=== PATIENT | male | born 1935 | race Caucasian/White ===

== ENCOUNTER 2017-09-02 15:05 | Inpatient (IN) | payer OTHER, BC ==
[~2017-09-02] VITALS: Ht 170.2 cm; Wt 91.9 kg
[2017-09-02] MEDS ORDERED: SODIUM CHLORIDE 0.9% 1000ML 1,000 ML IV STA (15:58)
--- NOTE | 2017-09-02 16:03 | EMERGENCY ROOM VISIT NOTE ---
History Report prepared by Violet: Luda Drake Under the Supervision of: Dr. Rebecca Diaz D.O. First contact with patient: 15:29 Chief Complaint: TESTICULAR PAIN Stated Complaint: ENLARGED TESTICLE History of Present Illness The patient is a 82 year old male who presents to the Emergency Room with complaints of worsening left testicle swelling beginning two days ago. The patient has a cystoscopy done on Saturday, three days ago. He reports he was not started on antibiotics after the procedure. The patient states he has a history of a spot of carcinoma in his bladder which was removed. Since it was removed, he has regular cystoscopies to check that the carcinoma does not return. The patient has a history of a partial prostatectomy. The patient notes that he started to have chills, aches, and fatigue beginning two days ago. He reports his testicle started to become tender, firm and swollen two days ago. The patient states his urine has been slightly darker in color. He had his urine checked and ultrasound done at his PCP's office today. Source of History: patient Onset: two days ago Position: other (left testicle) Quality: other (swelling) Timing: worsening Associated Symptoms: + chills, + urinary symptoms, No fevers, No headache, No chest pain, No SOB, No nausea, No vomiting, No diarrhea Review of Systems See HPI for pertinent positives & negatives. A total of 10 systems reviewed and were otherwise negative. Past Medical & Surgical Medical Problems: (1) Bifascicular block (2) Bladder cancer (3) BPH (benign prostatic hyperplasia) (4) Dyslipidemia (5) HTN (hypertension) (6) OSCAR (obstructive sleep apnea) (7) Thoracic ascending aortic aneurysm (8) Thrombocytopenia Surgical Problems: (1) H/O prostatectomy (2) H/O umbilical hernia repair (3) History of appendectomy (4) History of prostatectomy Family History Patient reports no known family medical history. Social History Smoking Status: Never Smoker Marital Status: Housing Status: lives with significant other Occupation Status: retired Current/Historical Medications Scheduled Aspirin (Aspirin Ec), 81 MG PO QAM Hydrochlorothiazide (Hydrochlorothiazide), 25 MG PO QAM Lisinopril (Zestril), 40 MG PO QAM Magnesium Oxide (Mag-Ox), 400 MG PO QAM Metoprolol Succ (Toprol Xl) (Toprol-Xl), 50 MG PO QAM Ocuvite Preservision (Ocuvite Preservision), 1 TAB PO BID Rosuvastatin Calcium (Crestor), 40 MG PO QAM Allergies Coded Allergies: No Known Allergies (Unverified , 09/02/17) Physical Exam Vital Signs Date Time Temp Pulse Resp B/P (MAP) Pulse Ox O2 Delivery O2 Flow Rate FiO2 09/02/17 18:33 86 20 119/66 94 Room Air 09/02/17 16:46 82 20 129/84 97 Room Air 09/02/17 15:09 36.4 100 20 113/72 98 Room Air Physical Exam GENERAL: alert, well appearing, well nourished, no distress, non-toxic EYE EXAM: normal conjunctiva, PERRL and EOM's grossly intact OROPHARYNX: no exudate, no erythema, lips, buccal mucosa, and tongue normal and mucous membranes are moist NECK: supple, no nuchal rigidity, no adenopathy, non-tender LUNGS: Clear to auscultation. Normal chest wall mechanics, no w/r/r HEART: no murmurs, S1 normal and S2 normal ABDOMEN: abdomen soft, non-tender, normo-active bowel sounds, no masses, no rebound or guarding. BACK: Back is symmetrical on inspection and there is no deformity, no midline tenderness, no CVA tenderness. SKIN: no rashes and no bruising UPPER EXTREMITIES: upper extremities are grossly normal. Nml pulses, nml ROM. LOWER EXTREMITIES: No pitting edema. Nml ROM, nml pulses. : Enlarged left testicle, tender to palpation, no palpable mass, no inguinal lymphadenopathy. Circumcised. No discharge no rash or sores. NEURO EXAM: Normal sensorium, cranial nerves II-XII grossly intact, normal speech, no gross weakness of arms, no gross weakness of legs. Medical Decision & Procedures ER Provider Diagnostic Interpretation: Radiology results have been interpreted by the radiologist and reviewed by me. ABDOMEN AND PELVIS CT WITH IV CONTRAST FINDINGS: Partially imaged groundglass opacities of the lung bases suggest atelectasis. No pneumatosis or pneumoperitoneum. Imaged inferior cardiac chambers are mildly enlarged. Coronary arterial disease. The liver, spleen, gallbladder, pancreas and left adrenal gland are unremarkable. Calcifications are seen within the right adrenal gland suggesting prior hemorrhage or infection. Study is moderately motion degraded. Minimal bilateral perinephric stranding. Low attenuating lesions of the kidneys bilaterally suggests cysts, largest on the right measuring 7.0 x 6.3 cm. Largest on the left measuring 2.3 x 2.1 cm. No renal calculi or hydronephrosis. Urinary bladder is only partially distended however demonstrates circumferential wall thickening with moderate perivesicular stranding. The prostate appears enlarged. There is a suggested TURP defect. Mild atherosclerosis of the aorta without aneurysm. No bulky adenopathy identified. Retroaortic left renal vein. Small sliding-type hiatal hernia. There is no bowel obstruction or focal bowel wall thickening. Moderate colonic diverticulosis without CT evidence of acute diverticulitis. Prior appendectomy. Soft tissues are unremarkable. Bones appear intact. Severe facet arthrosis and intervertebral disc space narrowing throughout the lumbar spine. IMPRESSION: 1. Prostamegaly with partial distention of the urinary bladder which demonstrates wall thickening and perivesicular inflammatory stranding. Findings may be secondary to chronic bladder outlet obstruction or possibly cystitis. Correlate with urinalysis. 2. No bowel obstruction or focal bowel wall thickening. 3. Small sliding type hiatal hernia. 4. Linear calcifications of the right adrenal gland suggest remote hemorrhage or infection. Electronically signed by: Gabe Carpenter M.D. Laboratory Results 09/02/17 16:15 Red Blood Count 5.48, Mean Corpuscular Volume 90.5, Mean Corpuscular Hemoglobin 32.1, Mean Corpuscular Hemoglobin Concent 35.5, Mean Platelet Volume 11.9, Neutrophils (%) (Auto) 80.3, Lymphocytes (%) (Auto) 9.1, Monocytes (%) (Auto) 9.6, Eosinophils (%) (Auto) 0.3, Basophils (%) (Auto) 0.2, Neutrophils # (Auto) 15.13, Lymphocytes # (Auto) 1.71, Monocytes # (Auto) 1.81, Eosinophils # (Auto) 0.06, Basophils # (Auto) 0.03 09/02/17 16:15 Test 09/02/17 16:15 09/02/17 16:26 09/02/17 16:48 White Blood Count 18.83 K/uL (4.8-10.8) Red Blood Count 5.48 M/uL (4.7-6.1) Hemoglobin 17.6 g/dL (14.0-18.0) Hematocrit 49.6 % (42-52) Mean Corpuscular Volume 90.5 fL (80-100) Mean Corpuscular Hemoglobin 32.1 pg (25-34) Mean Corpuscular Hemoglobin Concent 35.5 g/dl (32-36) Platelet Count 117 K/uL (130-400) Mean Platelet Volume 11.9 fL (7.4-10.4) Neutrophils (%) (Auto) 80.3 % Lymphocytes (%) (Auto) 9.1 % Monocytes (%) (Auto) 9.6 % Eosinophils (%) (Auto) 0.3 % Basophils (%) (Auto) 0.2 % Neutrophils # (Auto) 15.13 K/uL (1.4-6.5) Lymphocytes # (Auto) 1.71 K/uL (1.2-3.4) Monocytes # (Auto) 1.81 K/uL (0.11-0.59) Eosinophils # (Auto) 0.06 K/uL (0-0.5) Basophils # (Auto) 0.03 K/uL (0-0.2) RDW Standard Deviation 43.5 fL (36.4-46.3) RDW Coefficient of Variation 13.3 % (11.5-14.5) Immature Granulocyte % (Auto) 0.5 % Immature Granulocyte # (Auto) 0.09 K/uL (0.00-0.02) Prothrombin Time 10.5 SECONDS (9.0-12.0) Prothromb Time International Ratio 1.0 (0.9-1.1) Anion Gap 8.0 mmol/L (3-11) Est Creatinine Clear Calc Drug Dose 50.1 ml/min Estimated GFR () 62.2 Estimated GFR (Non- 53.7 BUN/Creatinine Ratio 24.9 (10-20) Calcium Level 10.3 mg/dl (8.5-10.1) Total Bilirubin 1.8 mg/dl (0.2-1) Aspartate Amino Transf (AST/SGOT) 23 U/L (15-37) Alanine Aminotransferase (ALT/SGPT) 23 U/L (12-78) Alkaline Phosphatase 91 U/L (45-117) Total Protein 8.2 gm/dl (6.4-8.2) Albumin 3.7 gm/dl (3.4-5.0) Globulin 4.5 gm/dl (2.5-4.0) Albumin/Globulin Ratio 0.8 (0.9-2) Bedside Lactic Acid Venous 1.22 mmol/L (0.90-1.70) Urine Color DK YELLOW Urine Appearance CLOUDY (CLEAR) Urine pH 5.0 (4.5-7.5) Urine Specific [place] 1.026 (1.000-1.030) Urine Protein 1+ (NEG) Urine Glucose (UA) NEG (NEG) Urine Ketones TRACE (NEG) Urine Occult Blood 1+ (NEG) Urine Nitrite POS (NEG) Urine Bilirubin NEG (NEG) Urine Urobilinogen NEG (NEG) Urine Leukocyte Esterase LARGE (NEG) Urine WBC (Auto) >30 /hpf (0-5) Urine RBC (Auto) 0-4 /hpf (0-4) Urine Hyaline Casts (Auto) 1-5 /lpf (0-5) Urine Epithelial Cells (Auto) 5-10 /lpf (0-5) Urine Bacteria (Auto) 4+ (NEG) Urine Yeast (Auto) (NONE PRSENT) Laboratory results per my review. Medications Administered Medications (Trade) Dose Ordered Sig/Fariha Route Start Time Stop Time Status Last Admin Dose Admin Sodium Chloride 1,000 ml @ 200 mls/hr Q5H STAT IV 09/02/17 15:58 09/02/17 20:07 DC 09/02/17 16:40 200 MLS/HR Levofloxacin (Levaquin / D5W) 500 mg NOW STAT IV 09/02/17 16:12 09/02/17 16:13 DC 09/02/17 16:41 500 MG ECG Indication: other (recent surgery) Rate (beats per minute): 79 Rhythm: sinus rhythm Findings: RBBB, no acute ischemic change, left axis deviation, no ectopy Comparison ECG Date: no prior available Change: EKG interpreted by me ED Course 1543: The patient was evaluated in room C1B. A complete history and physical exam was performed. 1558: Ordered Sodium Chloride 1000 ml @ 200 mls/hr IV. 161: Ordered Levofloxacin IV. 175: I updated the patient on his test results. He is complaining of a subjective fever and chills. 1803: Message left with answering service at the Urologist. 1813: I reviewed the patient's case with Kamille Beavers. She recommends consulting Urology. She will evaluate the patient for further management. 1828: I reviewed the patient's case with Dr. Anitha Owusu. She will consult on the patient. She states the patient does not need additional antibiotic coverage at this time. Medical Decision Differential diagnosis: Etiologies such as torsion, mass, infection, hernia, hydrocele, epididymitis, trauma, intra-abdominal process, as well as others were entertained. Patient with UTI likely complication from his recent cystoscopy, and possible evolving pyelonephritis. Patient nontoxic in appearance here, initial borderline tachycardia improved, and no fevers. Blood pressure stable throughout. Patient with significant leukocytosis, cultures pending. Patient originally covered with Levaquin for possible epididymoorchitis given left testicular pain and swelling. Unclear etiology of abnormality noted adjacent to the left testis on ultrasound. Patient will be seen in consult urology. Patient's exam not otherwise consistent with Hermann's. Patient aware of all results. Other labs reassuring, normal renal function noted. Patient agreeable with plan for additional evaluation. Medication Reconcilliation Current Medication List: was personally reviewed by me Blood Pressure Screening Patient's blood pressure: Normal blood pressure Consults Time Called: 1811 Consulting Physician: Kamille Beavers Returned Call: 1813 I reviewed the patient's case with Kamille Beavers. She recommends consulting Urology. She will evaluate the patient for further management. Additional Consults: Time Called: 1815 Consulted Physician: Dr. Anitha Owusu Returned Call: [phone] Additional Comments: I reviewed the patient's case with Dr. Anitha Owusu. She will consult on the patient. She states the patient does not need additional antibiotic coverage at this time Impression Primary Impression: UTI (urinary tract infection) Additional Impressions: Pyelonephritis Testicular pain, left Scribe Attestation The scribe's documentation has been prepared under my direction and personally reviewed by me in its entirety. I confirm that the note above accurately reflects all work, treatment, procedures, and medical decision making performed by me. Departure Information Dispostion Being Evaluated By Hospitalist Referrals Mustapha Gabriel MD (PCP) Patient Instructions My [facility] Problem Qualifiers Primary Impression: UTI (urinary tract infection) Urinary tract infection type: acute cystitis Hematuria presence: with hematuria Qualified Codes: N30.01 - Acute cystitis with hematuria
[2017-09-02] MEDS ORDERED: LEVAQUIN 750MG / 150ML D5W IV STA (16:12)
[2017-09-02] MEDS ORDERED: OPTIRAY 320 IV PRN (16:15)
[2017-09-02] MEDS ORDERED: LISI40TA PO (16:45)
[2017-09-02] MEDS ORDERED: ROSU40TA PO (16:45)
[2017-09-02] MEDS ORDERED: MAGN400T6 PO (16:45)
[2017-09-02] MEDS ORDERED: METO50TA8 PO (16:45)
[2017-09-02] MEDS ORDERED: MULT-190 PO (16:45)
[2017-09-02] MEDS ORDERED: HYDR25TA5 PO (16:45)
[2017-09-02] MEDS ORDERED: ASPI81TA28 PO (16:45)
[2017-09-02 16:47] LABS: HEMATOCRIT 49.6 % (42-52); HEMOGLOBIN 17.6 g/dL (14.0-18.0); MEAN CELL VOLUME 90.5 fL (80-100); MEAN CORPUSCULAR HEMOGLOBIN 32.1 pg (25-34); MEAN CORPUSCULAR HGB CONC 35.5 g/dl (32-36); MEAN PLATELET VOLUME 11.9 fL (7.4-10.4); PLATELET COUNT 117 K/uL (130-400); RED CELL DISTRIBUTION WIDTH CV 13.3 % (11.5-14.5); RED CELL DISTRIBUTION WIDTH SD 43.5 fL (36.4-46.3); WHITE BLOOD COUNT 18.83 K/uL (4.8-10.8)
[2017-09-02 16:51] LABS: ALBUMIN 3.7 gm/dl (3.4-5.0); CALCIUM 10.3 mg/dl (8.5-10.1); CREATININE 1.25 mg/dl (0.60-1.40); POTASSIUM 3.6 mmol/L (3.5-5.1)
[2017-09-02 16:54] LABS: TOTAL PROTEIN 8.2 gm/dl (6.4-8.2)
[2017-09-02 17:15] LABS: BASO % 0.2 %; BASO ABS # 0.03 K/uL (0-0.2); EOS % 0.3 %; EOS ABS # 0.06 K/uL (0-0.5); IG# 0.09 K/uL (0.00-0.02); LYMPH % 9.1 %; LYMPH ABS # 1.71 K/uL (1.2-3.4); MONO % 9.6 %; MONO ABS # 1.81 K/uL (0.11-0.59); NEUT % 80.3 %; NEUT ABS # 15.13 K/uL (1.4-6.5)
--- NOTE | 2017-09-02 17:39 | DIAGNOSTIC IMAGING REPORT ---
ABDOMEN AND PELVIS CT WITH IV CONTRAST CT DOSE: 543.66 mGy.cm HISTORY: Acute back and left-sided testicular pain/enlargement. f/c, back pain, left testicular pain/enlargement, s/p cysto Fri TECHNIQUE: Multiaxial CT images of the abdomen and pelvis were performed following the use of intravenous contrast. A dose lowering technique was utilized adhering to the principles of ALARA. COMPARISON STUDY: None. FINDINGS: Partially imaged groundglass opacities of the lung bases suggest atelectasis. No pneumatosis or pneumoperitoneum. Imaged inferior cardiac chambers are mildly enlarged. Coronary arterial disease. The liver, spleen, gallbladder, pancreas and left adrenal gland are unremarkable. Calcifications are seen within the right adrenal gland suggesting prior hemorrhage or infection. Study is moderately motion degraded. Minimal bilateral perinephric stranding. Low attenuating lesions of the kidneys bilaterally suggests cysts, largest on the right measuring 7.0 x 6.3 cm. Largest on the left measuring 2.3 x 2.1 cm. No renal calculi or hydronephrosis. Urinary bladder is only partially distended however demonstrates circumferential wall thickening with moderate perivesicular stranding. The prostate appears enlarged. There is a suggested TURP defect. Mild atherosclerosis of the aorta without aneurysm. No bulky adenopathy identified. Retroaortic left renal vein. Small sliding-type hiatal hernia. There is no bowel obstruction or focal bowel wall thickening. Moderate colonic diverticulosis without CT evidence of acute diverticulitis. Prior appendectomy. Soft tissues are unremarkable. Bones appear intact. Severe facet arthrosis and intervertebral disc space narrowing throughout the lumbar spine. IMPRESSION: 1. Prostamegaly with partial distention of the urinary bladder which demonstrates wall thickening and perivesicular inflammatory stranding. Findings may be secondary to chronic bladder outlet obstruction or possibly cystitis. Correlate with urinalysis. 2. No bowel obstruction or focal bowel wall thickening. 3. Small sliding type hiatal hernia. 4. Linear calcifications of the right adrenal gland suggest remote hemorrhage or infection. Electronically signed by: Gabe Carpenter M.D. 09/02/2017 5:37 PM Dictated Date/Time: 09/02/2017 5:28 PM
[2017-09-02] MEDS ORDERED: ONDANSETRON INJ 2 MG/ML 2 ML VIAL IV PRN (19:00)
--- NOTE | 2017-09-02 19:50 | History and Physical ---
History & Physical Date & Time of Service: Sep 02, 2017 ~ 18:30 Chief Complaint: Enlarged Testicle, Malaise Primary Care Physician: Brendon Gonzalez D.O. History of Present Illness 82 year old male who was referred to the ED by his PCP for evaluation of an enlarged testicle and UTI. Patient recently underwent screening cystoscopy on for follow up of bladder cancer. Patient follows with urologist Dr. Quiñonez from [place]. Patient reports her felt well after the procedure however about 48 hours after he reports he developed generalized fatigue and malaise. When he woke up yesterday his left testicle was swollen and painful. He reports chills and diaphoresis however did not take his temperature. He denies any urinary symptoms, no drainage. No abdominal pain, nausea, vomiting, or diarrhea. He denies chest pain and shortness of breath. No lightheadedness, dizziness, or syncopal events. He was seen at his PCPs office today who obtained labs and a testicular US. US showed a fluid collection near the left testicle. He was referred to the ED for further evaluation. In the ED, patient's WBC is 18K and U /A suggests UTI. He is hemodynamically stable. He was given IVF and IV Levaquin. Past Medical/Surgical History Medical Problems: (1) Bifascicular block Status: Chronic (2) Bladder cancer Status: Chronic (3) BPH (benign prostatic hyperplasia) Status: Chronic (4) Dyslipidemia Status: Chronic (5) HTN (hypertension) Status: Chronic (6) OSCAR (obstructive sleep apnea) Status: Chronic (7) Thoracic ascending aortic aneurysm Status: Chronic (8) Thrombocytopenia Status: Chronic Surgical Problems: (1) H/O prostatectomy Permanent Comment: partial Status: Chronic (2) H/O umbilical hernia repair Status: Chronic (3) History of appendectomy Status: Chronic (4) History of prostatectomy Status: Resolved Family History non contributory due to patient's advanced age Social History Smoking Status: Never Smoker Alcohol Use: occasionally Immunizations History of Influenza Vaccine: Yes Influenza Vaccine Date: Apr 24, 2017 History of Tetanus Vaccine?: Yes Tetanus Immunization Date: Nov 07, 2007 History of Pneumococcal: Yes Pneumococcal Date: Feb 20, 2016 Multi-Drug Resistant Organisms History of MDRO: No Allergies Coded Allergies: No Known Allergies (Unverified , 09/02/17) Home Medications Scheduled Aspirin (Aspirin Ec), 81 MG PO QAM Hydrochlorothiazide (Hydrochlorothiazide), 25 MG PO QAM Lisinopril (Zestril), 40 MG PO QAM Magnesium Oxide (Mag-Ox), 400 MG PO QAM Metoprolol Succ (Toprol Xl) (Toprol-Xl), 50 MG PO QAM Ocuvite Preservision (Ocuvite Preservision), 1 TAB PO BID Rosuvastatin Calcium (Crestor), 40 MG PO QAM Review of Systems ROS per HPI, all other systems reviewed and negative Physical Exam Vital Signs Date Time Temp Pulse Resp B/P (MAP) Pulse Ox O2 Delivery O2 Flow Rate FiO2 09/02/17 18:33 86 20 119/66 94 Room Air 09/02/17 16:46 82 20 129/84 97 Room Air 09/02/17 15:09 36.4 100 20 113/72 98 Room Air General Appearance: WD/WN, no apparent distress Head: normocephalic, atraumatic Eyes: normal inspection, EOMI, sclerae normal ENT: hearing grossly normal, + pertinent finding (mucous membranes moist) Neck: supple, no JVD, trachea midline Respiratory/Chest: lungs clear, normal breath sounds, no respiratory distress Cardiovascular: regular rate, rhythm, no edema, normal peripheral pulses Abdomen/GI: normal bowel sounds, non tender, soft, no organomegaly Genitourinary - Male: + testicular tenderness (left, with edema ) Extremities/Musculoskelatal: normal inspection, no calf tenderness, normal capillary refill Neurologic/Psych: no motor/sensory deficits, alert, normal mood/affect, oriented x 3 Skin: normal color, warm/dry Diagnostics Laboratory Results Results Past 24 Hours Test 09/02/17 16:15 09/02/17 16:26 09/02/17 16:48 Range/Units White Blood Count 18.83 4.8-10.8 K/uL Red Blood Count 5.48 4.7-6.1 M/uL Hemoglobin 17.6 14.0-18.0 g/dL Hematocrit 49.6 42-52 % Mean Corpuscular Volume 90.5 80-100 fL Mean Corpuscular Hemoglobin 32.1 25-34 pg Mean Corpuscular Hemoglobin Concent 35.5 32-36 g/dl Platelet Count 117 130-400 K/uL Mean Platelet Volume 11.9 7.4-10.4 fL Neutrophils (%) (Auto) 80.3 % Lymphocytes (%) (Auto) 9.1 % Monocytes (%) (Auto) 9.6 % Eosinophils (%) (Auto) 0.3 % Basophils (%) (Auto) 0.2 % Neutrophils # (Auto) 15.13 1.4-6.5 K/uL Lymphocytes # (Auto) 1.71 1.2-3.4 K/uL Monocytes # (Auto) 1.81 0.11-0.59 K/uL Eosinophils # (Auto) 0.06 0-0.5 K/uL Basophils # (Auto) 0.03 0-0.2 K/uL RDW Standard Deviation 43.5 36.4-46.3 fL RDW Coefficient of Variation 13.3 11.5-14.5 % Immature Granulocyte % (Auto) 0.5 % Immature Granulocyte # (Auto) 0.09 0.00-0.02 K/uL Prothrombin Time 10.5 9.0-12.0 SECONDS Prothromb Time International Ratio 1.0 0.9-1.1 Sodium Level 135 136-145 mmol/L Potassium Level 3.6 3.5-5.1 mmol/L Chloride Level 101 98-107 mmol/L Carbon Dioxide Level 26 21-32 mmol/L Anion Gap 8.0 3-11 mmol/L Blood Urea Nitrogen 31 7-18 mg/dl Creatinine 1.25 0.60-1.40 mg/dl Est Creatinine Clear Calc Drug Dose 50.1 ml/min Estimated GFR () 62.2 Estimated GFR (Non- 53.7 BUN/Creatinine Ratio 24.9 10-20 Random Glucose 100 70-99 mg/dl Calcium Level 10.3 8.5-10.1 mg/dl Total Bilirubin 1.8 0.2-1 mg/dl Aspartate Amino Transf (AST/SGOT) 23 15-37 U/L Alanine Aminotransferase (ALT/SGPT) 23 12-78 U/L Alkaline Phosphatase 91 45-117 U/L Total Protein 8.2 6.4-8.2 gm/dl Albumin 3.7 3.4-5.0 gm/dl Globulin 4.5 2.5-4.0 gm/dl Albumin/Globulin Ratio 0.8 0.9-2 Bedside Lactic Acid Venous 1.22 0.90-1.70 mmol/L Urine Color DK YELLOW Urine Appearance CLOUDY CLEAR Urine pH 5.0 4.5-7.5 Urine Specific [place] 1.026 1.000-1.030 Urine Protein 1+ NEG Urine Glucose (UA) NEG NEG Urine Ketones TRACE NEG Urine Occult Blood 1+ NEG Urine Nitrite POS NEG Urine Bilirubin NEG NEG Urine Urobilinogen NEG NEG Urine Leukocyte Esterase LARGE NEG Urine WBC (Auto) >30 0-5 /hpf Urine Hyaline Casts (Auto) 1-5 0-5 /lpf Urine Epithelial Cells (Auto) 5-10 0-5 /lpf Urine Bacteria (Auto) 4+ NEG Urine Yeast (Auto) NONE PRSENT Microbiology Results 09/02/17 Blood Culture, Received Pending 09/02/17 Blood Culture, Received Pending 09/02/17 Urine Culture, Received Pending Diagnostic Radiology CT ABD/PELVIS IMPRESSION: 1. Prostamegaly with partial distention of the urinary bladder which demonstrates wall thickening and perivesicular inflammatory stranding. Findings may be secondary to chronic bladder outlet obstruction or possibly cystitis. Correlate with urinalysis. 2. No bowel obstruction or focal bowel wall thickening. 3. Small sliding type hiatal hernia. 4. Linear calcifications of the right adrenal gland suggest remote hemorrhage or infection. TESTICULAR US IMPRESSION (outpatient): 1. A 3.9 x 2.8 x 3.4 cm complex avascular collection noted lateral to the left testis with internal echoes and multiple septations. Diagnostic considerations would include loculated hydrocele with proteinaceous debris. Hemorrhage or infection not excluded. Please correlate clinically. 2. 0.2 cm left epididymal cyst versus spermatocele. 3. Normal right epididymis. 4. Normal sonographic evaluation of testes. Specifically, no evidence of intratesticular mass or torsion. Impression Assessment and Plan UTI ABNORMAL TESTICULAR US - admit to med/surg - patient presented to PCPs office with reports of malaise and left testicular swelling; s/p screening cysto for hx of bladder cancer on 08/[address] [place] [address] Quiñonez - outpatient testicular US([facility]) abnormal and as above; fluid collection around the left testicle - U/A suggests UTI - WBC 18k, no other signs of sepsis - s/p Levaquin in the ED; will continue with and adjust per culture results - IVF - monitor PVRs - Dr. Craig notified by ED HTN - BP controlled, continue metoprolol and lisinopril - hold HCTZ while giving IVF for UTI THROMBOCYTOPENIA - chronic, no signs of bleeding - monitor platelets HLD - continue statin DVT PROPHYLAXIS - SCDs in the event patient needs an invasive procedure DISPO - In my clinical judgment this beneficiary meets acute admission criteria, established by [facility], that includes being hospitalized through two midnights. Agree with above H and P. Briefly 82M with hx of bladder cancer wand who gets regular screening cystoscopies and had one few days back presents with pain in left testicle, chills and generalized malaise.[place] hot and sweaty. Patient says symptoms started 48hrs after the procedure. Out patient testicular US by PCP shows fluid in left testicle possible hydrocele. Abscess cannot be excluded. Currently hemodynamically stable. No sob or cough. No chest pain p/e UTI Abnormal Testicular US iv levaquin f/u cx urology consult HTN home meds holding hctz will monitor VTE Prophylaxis VTE Risk Assessment Done? Y/N: Yes Risk Level: Moderate
[2017-09-02 19:56] VITALS: BP 130/79; PULSE 62; TEMP 38.5; O2SAT 98
[2017-09-02 20:00] VITALS: O2SAT 98; Ht 170.2 cm; Wt 91.9 kg
[2017-09-02] MEDS: CEROVITE ADV FORMULA TAB PO SCH (21:13)
[2017-09-02] MEDS: SODIUM CHLORIDE 0.9% 1000ML 1,000 ML IV SCH (21:14)
[2017-09-02] MEDS: ACETAMINOPHEN 325 MG TAB PO PRN (21:20)
[2017-09-02 23:01] VITALS: BP 103/62; PULSE 72; TEMP 37.8; O2SAT 94
[2017-09-03 02:30] VITALS: TEMP 38
[2017-09-03] MEDS: ACETAMINOPHEN 325 MG TAB PO PRN (02:38)
--- NOTE | 2017-09-03 07:38 | Urology Consultation ---
History General Date of Service: Sep 03, 2017. Chief Complaint: left epididymitis Primary Care Physician: Brendon Gonzalez D.O. Pt seen a urologist before?: Yes If yes, why?: bph and bladder cancer History of Present Illness I am asked by Kamille Montiel PA-C to evaluate and treat patient for left orchitis. He started his illness 2 days ago. He had an uneventful cysto in [place] Saturday. He had dysuria fevers and progressing left scrotal pain and swelling Saturday. He had an ultrasound and urine done Saturday and was sent to ER. He had a high white count but was stable. He feels about the same today. The left side is still painful and swollen. He is on iv levaquin. This is his first uti. He had a low grade bladder cancer found incidentally 2 yrs ago on cysto for bph. He had a turbt and normal surveillance cysto since. He had a laparoscopic simple prostatectomy for bph about 18 months ago. He has voided well since. Imaging Imaging: CT Laboratory Results Past 24 Hours Test 09/02/17 16:15 09/02/17 16:26 09/02/17 16:48 09/03/17 04:44 Range/Units White Blood Count 18.83 4.8-10.8 K/uL Red Blood Count 5.48 4.7-6.1 M/uL Hemoglobin 17.6 14.0-18.0 g/dL Hematocrit 49.6 42-52 % Mean Corpuscular Volume 90.5 80-100 fL Mean Corpuscular Hemoglobin 32.1 25-34 pg Mean Corpuscular Hemoglobin Concent 35.5 32-36 g/dl Platelet Count 117 130-400 K/uL Mean Platelet Volume 11.9 7.4-10.4 fL Neutrophils (%) (Auto) 80.3 % Lymphocytes (%) (Auto) 9.1 % Monocytes (%) (Auto) 9.6 % Eosinophils (%) (Auto) 0.3 % Basophils (%) (Auto) 0.2 % Neutrophils # (Auto) 15.13 1.4-6.5 K/uL Lymphocytes # (Auto) 1.71 1.2-3.4 K/uL Monocytes # (Auto) 1.81 0.11-0.59 K/uL Eosinophils # (Auto) 0.06 0-0.5 K/uL Basophils # (Auto) 0.03 0-0.2 K/uL RDW Standard Deviation 43.5 36.4-46.3 fL RDW Coefficient of Variation 13.3 11.5-14.5 % Immature Granulocyte % (Auto) 0.5 % Immature Granulocyte # (Auto) 0.09 0.00-0.02 K/uL Prothrombin Time 10.5 9.0-12.0 SECONDS Prothromb Time International Ratio 1.0 0.9-1.1 Sodium Level 135 136-145 mmol/L Potassium Level 3.6 3.5-5.1 mmol/L Chloride Level 101 98-107 mmol/L Carbon Dioxide Level 26 21-32 mmol/L Anion Gap 8.0 3-11 mmol/L Blood Urea Nitrogen 31 7-18 mg/dl Creatinine 1.25 0.60-1.40 mg/dl Est Creatinine Clear Calc Drug Dose 50.1 ml/min Estimated GFR () 62.2 Estimated GFR (Non- 53.7 BUN/Creatinine Ratio 24.9 10-20 Random Glucose 100 70-99 mg/dl Calcium Level 10.3 8.5-10.1 mg/dl Total Bilirubin 1.8 0.2-1 mg/dl Aspartate Amino Transf (AST/SGOT) 23 15-37 U/L Alanine Aminotransferase (ALT/SGPT) 23 12-78 U/L Alkaline Phosphatase 91 45-117 U/L Total Protein 8.2 6.4-8.2 gm/dl Albumin 3.7 3.4-5.0 gm/dl Globulin 4.5 2.5-4.0 gm/dl Albumin/Globulin Ratio 0.8 0.9-2 Bedside Lactic Acid Venous 1.22 0.90-1.70 mmol/L Urine Color DK YELLOW Urine Appearance CLOUDY CLEAR Urine pH 5.0 4.5-7.5 Urine Specific [place] 1.026 1.000-1.030 Urine Protein 1+ NEG Urine Glucose (UA) NEG NEG Urine Ketones TRACE NEG Urine Occult Blood 1+ NEG Urine Nitrite POS NEG Urine Bilirubin NEG NEG Urine Urobilinogen NEG NEG Urine Leukocyte Esterase LARGE NEG Urine WBC (Auto) >30 0-5 /hpf Urine RBC (Auto) 0-4 0-4 /hpf Urine Hyaline Casts (Auto) 1-5 0-5 /lpf Urine Epithelial Cells (Auto) 5-10 0-5 /lpf Urine Bacteria (Auto) 4+ NEG Urine Yeast (Auto) NONE PRSENT Microbiology Results 09/02/17 Blood Culture, Received Pending 09/02/17 Blood Culture, Received Pending 09/02/17 Urine Culture, Received Pending Labs were reviewed and are within normal limits unless listed below. Labs are available in the chart and at [facility] Past History cancer - skin, heart disease, high cholesterol, hypertension, other (sleep apnea ) Past Surgical History: appendectomy, other (right rotator cuff surgery, umbilical hernia, simple prostatectomy robotic) Family History Patient reports no known family medical history. not contributory at his age Social History Hx Tobacco Use In Past Year?: No Smoking: non-smoker Alcohol: other (less than monthly) Drug use: none Marital status: Housing status: lives with family Occupation status: retired Immunizations History of Influenza Vaccine: Yes Influenza Vaccine Date: Apr 24, 2017 History of Tetanus Vaccine?: Yes Tetanus Immunization Date: Nov 07, 2007 History of Pneumococcal: Yes Pneumococcal Date: Feb 20, 2016 History of MDRO No Allergies Coded Allergies: No Known Allergies (Unverified , 09/02/17) Medications Home Medications: Home Meds and Scripts Medications Dose Route/Sig Max Daily Dose Days Date Category Ocuvite Preservision (Multivitamins/Minerals) 1 Tab Tab 1 Tab PO BID 09/02/17 Reported Mag-Ox (Magnesium Oxide) 400 Mg Tab 400 Mg PO QAM 09/02/17 Reported Aspirin Ec (Aspirin) 81 Mg Tab 81 Mg PO QAM 09/02/17 Reported Crestor (Rosuvastatin Calcium) 40 Mg Tab 40 Mg PO QAM 09/02/17 Reported Hydrochlorothiazide 25 Mg Tab 25 Mg PO QAM 09/02/17 Reported Toprol-Xl (Metoprolol Succinate) 50 Mg Tabcr 50 Mg PO QAM 09/02/17 Reported Zestril (Lisinopril) 40 Mg Tab 40 Mg PO QAM 09/02/17 Reported Inpatient Medications: Current Inpatient Medications Medications (Trade) Dose Ordered Sig/Fariha Route Start Time Stop Time Status Last Admin Dose Admin Ioversol (Optiray 320) 100 ml UD PRN IV 09/02/17 16:15 09/06/17 16:14 Acetaminophen (Tylenol Tab) 650 mg Q4H PRN PO 09/02/17 19:00 10/02/17 18:59 09/03/17 02:38 650 MG Ondansetron HCl (Zofran Inj) 4 mg Q6H PRN IV 09/02/17 19:00 10/02/17 18:59 Levofloxacin 500 mg/Prmx 100 ml @ 100 mls/hr Q24H IV 09/03/17 16:00 09/12/17 15:59 Sodium Chloride 1,000 ml @ 80 mls/hr [id number] IV 09/02/17 19:15 10/02/17 19:14 09/02/17 21:14 80 MLS/HR Aspirin (Ecotrin Tab) 81 mg QAM PO 09/03/17 09:00 10/03/17 08:59 Lisinopril (Zestril Tab) 40 mg QAM PO 09/03/17 09:00 10/03/17 08:59 Magnesium Oxide (Mag-Ox Tab) 400 mg QAM PO 09/03/17 09:00 10/03/17 08:59 Metoprolol Succinate (Toprol Xl Tab) 50 mg QAM PO 09/03/17 09:00 10/03/17 08:59 Multivitamins/ Minerals (Multivitamin W/ Minerals Tab) 1 tab BID PO 09/02/17 21:00 10/02/17 20:59 09/02/17 21:13 1 TAB Rosuvastatin Calcium (Crestor Tab) 40 mg QAM PO 09/03/17 09:00 10/03/17 08:59 Review of Systems Review of Systems Constitutional: + fever, + chills Neurological: + dizzy Endocrine: + tired/sluggish Gastrointestinal: + abdominal pain, No nausea, No vomiting, No constipation, No diarrhea Cardiovascular: No chest pain, No palpitations, No swelling ankles/feet Respiratory: No shortness of breath, No chronic cough Musculoskeletal: + joint pain Male : + painful urination, + infections, + nocturia more than once/night, No frequent urination Physical Exam Vital Signs: Vital Signs Past 12 Hours Date Time Temp Pulse Resp B/P (MAP) Pulse Ox O2 Delivery O2 Flow Rate FiO2 09/03/17 02:30 38.0 09/02/17 23:45 Room Air 09/02/17 23:01 37.8 72 16 103/62 (76) 94 Room Air 09/02/17 20:00 Room Air 09/02/17 20:00 98 Room Air 09/02/17 19:56 38.5 62 18 130/79 (96) 98 Room Air 09/02/17 19:41 85 20 114/76 96 Physical Exam: General Appearance: WD/WN, no apparent distress, + obese Eyes: bilateral eyes normal inspection ENT: hearing grossly normal, + pertinent finding (uses hearing aides) Neck: no adenopathy, no JVD, trachea midline Respiratory/Chest: no respiratory distress, no accessory muscle use Gastrointestinal: Abdomen: normal abdomen Incision: normal incision Bladder: normal bladder Renal: normal renal Hernia: absent hernia Liver: normal liver Genitourinary - Male: Penis: normal penis Urethral Meatus: normal urethral meatus Testes: pertinent finding (left scrotum red, thickened skin, tender and contents not palapbly distinct. normal skin perfusion, no crepitance) Extremities: non-tender, normal inspection, no pedal edema, no calf tenderness Neurologic/Psychiatric: alert, normal mood/affect, oriented x 3 Skin: normal color, warm/dry, no rash Assessment & Plan Assessment & Plan left orchitis due to cysto instrumentation patient understands from here out will need antibiotic coverage for cysto in future iv levaquin until cultures back then oral agents for 2 weeks. Does not look like he is forming an abscess at this time. needs exam in 2 weeks here or in [place] voiding fine continue bladder cancer surveillance q 6 months
[2017-09-03 07:44] VITALS: BP 137/71; PULSE 86; TEMP 37.3; O2SAT 95
[2017-09-03] MEDS: SODIUM CHLORIDE 0.9% 1000ML 1,000 ML IV SCH (08:24)
[2017-09-03 08:29] LABS: CREATININE 0.82 mg/dl (0.60-1.40); POTASSIUM 3.6 mmol/L (3.5-5.1)
[2017-09-03 08:34] LABS: HEMATOCRIT 42.6 % (42-52); HEMOGLOBIN 14.8 g/dL (14.0-18.0); MEAN CELL VOLUME 90.8 fL (80-100); MEAN CORPUSCULAR HEMOGLOBIN 31.6 pg (25-34); MEAN CORPUSCULAR HGB CONC 34.7 g/dl (32-36); MEAN PLATELET VOLUME 11.7 fL (7.4-10.4); PLATELET COUNT 95 K/uL (130-400); RED CELL DISTRIBUTION WIDTH CV 13.4 % (11.5-14.5)
[2017-09-03] MEDS: ASPIRIN 81 MG ECTAB PO SCH (09:41)
[2017-09-03] MEDS: CEROVITE ADV FORMULA TAB PO SCH ×2 (09:41→21:46)
[2017-09-03] MEDS: MAGNESIUM OXIDE 400 MG TAB PO SCH (09:41)
[2017-09-03] MEDS: LISINOPRIL 40 MG TAB PO SCH (09:42)
[2017-09-03] MEDS: METOPROLOL SUCC 50MG EXT REL TAB PO SCH (09:42)
[2017-09-03] MEDS: ROSUVASTATIN CALCIUM 20 MG TAB PO SCH (09:42)
--- NOTE | 2017-09-03 10:09 | Clinical Documentation Query ---
DEMAR Saravia : CLINICAL DOCUMENTATION QUERY Patient is an 82 year old male admitted for evaluation of generalized fatigue and malaise 48 hours after cystoscopy. UA suggestive of UTI, culture positive for gram negative bacilli, and patient recieving IVF and IV Levaquin. As appropriate, consider documentation as suggested below as this impacts accurate DRG assignment. In your clinical opinion is this patient being managed for: ( x ) Postprocedural UTI, a complication of cystoscopy performed 08/30 ( ) Not Agree ( ) Other explanation of clinical findings (Please Explain) ( ) Unable to determine (Please Define) ( ) Need to Discuss The medical record reflects the following clinical findings, treatment, and risk factors. Clinical Indicators:UA suggestive of UTI, culture positive for gram negative bacilli, and patient recieving IVF and IV Levaquin Treatment: As above Risk Factors: Recent cystoscopy Please clarify and document your clinical opinion in the progress notes and discharge summary. Terms such as "probable", "suspected", "likely", "questionable", "possible", or "still to be ruled out" are acceptable. IF IN AGREEMENT, YOU MUST DOCUMENT ABOVE DIAGNOSTIC STATEMENT IN DAILY PROGRESS NOTES AND DISCHARGE SUMMARY. This document is not part of the patient's record. Thank You, Fredis Anderson, RN [phone]
--- NOTE | 2017-09-03 11:20 | Progress Note ---
Medicine Progress Note Date & Time of Visit: Sep 03, 2017 at 11:05. Subjective 82 yo M presents with UTI symptoms and L orchitis post-cystoscopy last week -pt states that symptoms are mostly still present and that testicular swelling bothers him the most. -febrile overnight -reports mild headache. -reports an improvement in testicular pain with Tylenol-denies needing anything stronger at this time. -tolerating PO Objective Last 8 Hrs Date Time Temp Pulse Resp B/P (MAP) Pulse Ox O2 Delivery O2 Flow Rate FiO2 09/03/17 07:44 37.3 86 20 137/71 (93) 95 Room Air Physical Exam: GEN: WNWD, in no acute distress, alert and appropriate HEENT: NC/AT, PERRL, normal sclerae, MMM CARDIO: reg rate, S1/2 heard without m/g/r LUNGS: CTA bilaterally, no crackles, rales or wheezes, good diaphragmatic excursion ABD: soft, non-tender, non-distended, no rebound or guarding, +BS, no CVA tenderness -: L testicular enlargement with erythema and inflammation (+warmth)> R. TTP. No inguinal LAD. No discharge present from penis. NO rash noted. EXTREMITY: RP and DP palpable 2+ bilat, no LE swelling or edema, extremities are warm and well-perfused NEURO: CN 2-12 grossly intact MUSC: 5/5 strength throughout, no gross focal deficits SKIN: warm and dry Laboratory Results: 09/03/17 07:48 09/03/17 07:48 Test 09/02/17 16:15 09/02/17 16:26 09/02/17 16:48 09/03/17 07:48 Immature Granulocyte % (Auto) 0.5 % White Blood Count 18.83 K/uL (4.8-10.8) Red Blood Count 5.48 M/uL (4.7-6.1) 4.69 M/uL (4.7-6.1) Hemoglobin 17.6 g/dL (14.0-18.0) Hematocrit 49.6 % (42-52) Mean Corpuscular Volume 90.5 fL (80-100) 90.8 fL (80-100) Mean Corpuscular Hemoglobin 32.1 pg (25-34) 31.6 pg (25-34) Mean Corpuscular Hemoglobin Concent 35.5 g/dl (32-36) 34.7 g/dl (32-36) Platelet Count 117 K/uL (130-400) Mean Platelet Volume 11.9 fL (7.4-10.4) 11.7 fL (7.4-10.4) Neutrophils (%) (Auto) 80.3 % Lymphocytes (%) (Auto) 9.1 % Monocytes (%) (Auto) 9.6 % Eosinophils (%) (Auto) 0.3 % Basophils (%) (Auto) 0.2 % Neutrophils # (Auto) 15.13 K/uL (1.4-6.5) Lymphocytes # (Auto) 1.71 K/uL (1.2-3.4) Monocytes # (Auto) 1.81 K/uL (0.11-0.59) Eosinophils # (Auto) 0.06 K/uL (0-0.5) Basophils # (Auto) 0.03 K/uL (0-0.2) Immature Granulocyte # (Auto) 0.09 K/uL (0.00-0.02) Prothrombin Time 10.5 SECONDS (9.0-12.0) Prothromb Time International Ratio 1.0 (0.9-1.1) Total Bilirubin 1.8 mg/dl (0.2-1) Aspartate Amino Transf (AST/SGOT) 23 U/L (15-37) Alanine Aminotransferase (ALT/SGPT) 23 U/L (12-78) Alkaline Phosphatase 91 U/L (45-117) Total Protein 8.2 gm/dl (6.4-8.2) Albumin 3.7 gm/dl (3.4-5.0) Globulin 4.5 gm/dl (2.5-4.0) Albumin/Globulin Ratio 0.8 (0.9-2) Bedside Lactic Acid Venous 1.22 mmol/L (0.90-1.70) Urine Color DK YELLOW Urine Appearance CLOUDY (CLEAR) Urine pH 5.0 (4.5-7.5) Urine Specific [place] 1.026 (1.000-1.030) Urine Protein 1+ (NEG) Urine Glucose (UA) NEG (NEG) Urine Ketones TRACE (NEG) Urine Occult Blood 1+ (NEG) Urine Nitrite POS (NEG) Urine Bilirubin NEG (NEG) Urine Urobilinogen NEG (NEG) Urine Leukocyte Esterase LARGE (NEG) Urine WBC (Auto) >30 /hpf (0-5) Urine RBC (Auto) 0-4 /hpf (0-4) Urine Hyaline Casts (Auto) 1-5 /lpf (0-5) Urine Epithelial Cells (Auto) 5-10 /lpf (0-5) Urine Bacteria (Auto) 4+ (NEG) Urine Yeast (Auto) (NONE PRSENT) RDW Standard Deviation 44.0 fL (36.4-46.3) RDW Coefficient of Variation 13.4 % (11.5-14.5) Platelet Estimate DECREASED Anion Gap 8.0 mmol/L (3-11) Est Creatinine Clear Calc Drug Dose 76.4 ml/min Estimated GFR () 96.1 Estimated GFR (Non- 82.9 BUN/Creatinine Ratio 24.8 (10-20) Calcium Level 10.0 mg/dl (8.5-10.1) Date/Time Source Procedure Growth Status 09/02/17 16:20 Blood Blood Culture Pending Received 09/02/17 16:48 Urine , Clean Catch Urine Culture - Preliminary Gram Negative Bacilli Resulted Last 24 Hours Test 09/02/17 16:15 09/02/17 16:26 09/02/17 16:48 09/03/17 07:48 White Blood Count 18.83 K/uL 13.00 K/uL Red Blood Count 5.48 M/uL 4.69 M/uL Hemoglobin 17.6 g/dL 14.8 g/dL Hematocrit 49.6 % 42.6 % Mean Corpuscular Volume 90.5 fL 90.8 fL Mean Corpuscular Hemoglobin 32.1 pg 31.6 pg Mean Corpuscular Hemoglobin Concent 35.5 g/dl 34.7 g/dl Platelet Count 117 K/uL 95 K/uL Mean Platelet Volume 11.9 fL 11.7 fL Neutrophils (%) (Auto) 80.3 % Lymphocytes (%) (Auto) 9.1 % Monocytes (%) (Auto) 9.6 % Eosinophils (%) (Auto) 0.3 % Basophils (%) (Auto) 0.2 % Neutrophils # (Auto) 15.13 K/uL Lymphocytes # (Auto) 1.71 K/uL Monocytes # (Auto) 1.81 K/uL Eosinophils # (Auto) 0.06 K/uL Basophils # (Auto) 0.03 K/uL RDW Standard Deviation 43.5 fL 44.0 fL RDW Coefficient of Variation 13.3 % 13.4 % Immature Granulocyte % (Auto) 0.5 % Immature Granulocyte # (Auto) 0.09 K/uL Prothrombin Time 10.5 SECONDS Prothromb Time International Ratio 1.0 Sodium Level 135 mmol/L 135 mmol/L Potassium Level 3.6 mmol/L 3.6 mmol/L Chloride Level 101 mmol/L 103 mmol/L Carbon Dioxide Level 26 mmol/L 24 mmol/L Anion Gap 8.0 mmol/L 8.0 mmol/L Blood Urea Nitrogen 31 mg/dl 20 mg/dl Creatinine 1.25 mg/dl 0.82 mg/dl Est Creatinine Clear Calc Drug Dose 50.1 ml/min 76.4 ml/min Estimated GFR () 62.2 96.1 Estimated GFR (Non- 53.7 82.9 BUN/Creatinine Ratio 24.9 24.8 Random Glucose 100 mg/dl 98 mg/dl Calcium Level 10.3 mg/dl 10.0 mg/dl Total Bilirubin 1.8 mg/dl Aspartate Amino Transf (AST/SGOT) 23 U/L Alanine Aminotransferase (ALT/SGPT) 23 U/L Alkaline Phosphatase 91 U/L Total Protein 8.2 gm/dl Albumin 3.7 gm/dl Globulin 4.5 gm/dl Albumin/Globulin Ratio 0.8 Bedside Lactic Acid Venous 1.22 mmol/L Urine Color DK YELLOW Urine Appearance CLOUDY Urine pH 5.0 Urine Specific [place] 1.026 Urine Protein 1+ Urine Glucose (UA) NEG Urine Ketones TRACE Urine Occult Blood 1+ Urine Nitrite POS Urine Bilirubin NEG Urine Urobilinogen NEG Urine Leukocyte Esterase LARGE Urine WBC (Auto) >30 /hpf Urine RBC (Auto) 0-4 /hpf Urine Hyaline Casts (Auto) 1-5 /lpf Urine Epithelial Cells (Auto) 5-10 /lpf Urine Bacteria (Auto) 4+ Urine Yeast (Auto) Platelet Estimate DECREASED Date/Time Source Procedure Growth Status 09/02/17 16:20 Blood Blood Culture Pending Received 09/02/17 16:15 Blood Blood Culture Pending Received 09/02/17 16:48 Urine , Clean Catch Urine Culture - Preliminary Gram Negative Bacilli Resulted Assessment & Plan 82 yo M presents with UTI symptoms and L orchitis post-cystoscopy last week 1. Postprocedural UTI, a complication of cystoscopy performed 08/30- GNB growing in culture and still awaiting speciation. Pt has associated L orchitis. Pt is on Levaquin empirically with reported improvement in testicular pain overnight. Tm was around 38.5 C. Urology saw him this morning and recommends continuing abx for now and adjusting based on culture results. No CVA tenderness or chills reported this morning. Denies pelvic pain, dysuria, hematuria. 2. L orchitis 2.2 #1-plan as above. 3. HTN-HCTZ held while giving IVF overnight. With fever there was concern with insensible losses and creat was slightly bumped with improvement today. Pt is tolerating PO and reports to be keeping up with fluid intake so will stop IVF now. Cont to hold HCTZ. Cont lisinopril and BB. 4. Chronic thrombocytopenia-chronic, stable without signs of bleeding. DVT proph-holding with PLT<100K Full Code Dispo-likely to home in next 1-2 days based on fever curve and clinical improvement. Anca White DO [facility] Hospitalist Consultants: Urology-Dr. Craig Current Inpatient Medications: Current Inpatient Medications Medications (Trade) Dose Ordered Sig/Fariha Route Start Time Stop Time Status Last Admin Dose Admin Ioversol (Optiray 320) 100 ml UD PRN IV 09/02/17 16:15 09/06/17 16:14 Acetaminophen (Tylenol Tab) 650 mg Q4H PRN PO 09/02/17 19:00 10/02/17 18:59 09/03/17 02:38 650 MG Ondansetron HCl (Zofran Inj) 4 mg Q6H PRN IV 09/02/17 19:00 10/02/17 18:59 Levofloxacin 500 mg/Prmx 100 ml @ 100 mls/hr Q24H IV 09/03/17 16:00 09/12/17 15:59 Sodium Chloride 1,000 ml @ 80 mls/hr [id number] IV 09/02/17 19:15 10/02/17 19:14 09/03/17 08:24 80 MLS/HR Aspirin (Ecotrin Tab) 81 mg QAM PO 09/03/17 09:00 10/03/17 08:59 09/03/17 09:41 81 MG Lisinopril (Zestril Tab) 40 mg QAM PO 09/03/17 09:00 10/03/17 08:59 09/03/17 09:42 40 MG Magnesium Oxide (Mag-Ox Tab) 400 mg QAM PO 09/03/17 09:00 10/03/17 08:59 09/03/17 09:41 400 MG Metoprolol Succinate (Toprol Xl Tab) 50 mg QAM PO 09/03/17 09:00 10/03/17 08:59 09/03/17 09:42 50 MG Multivitamins/ Minerals (Multivitamin W/ Minerals Tab) 1 tab BID PO 09/02/17 21:00 10/02/17 20:59 09/03/17 09:41 1 TAB Rosuvastatin Calcium (Crestor Tab) 40 mg QAM PO 09/03/17 09:00 10/03/17 08:59 09/03/17 09:42 40 MG
[2017-09-03 15:15] VITALS: BP 115/71; PULSE 70; TEMP 37.7; O2SAT 95
[2017-09-03] MEDS ORDERED: LEVOFLOXACIN / D5W 500 MG in PREMIXED IN D5W 100 ML IV SCH (16:00)
[2017-09-03 23:19] VITALS: BP 104/65; PULSE 66; TEMP 36.9; O2SAT 95
[2017-09-04 03:54] VITALS: BP 133/77; PULSE 75; TEMP 36.8; O2SAT 95
[2017-09-04 05:38] LABS: HEMATOCRIT 41.8 % (42-52); HEMOGLOBIN 14.2 g/dL (14.0-18.0); MEAN CELL VOLUME 91.1 fL (80-100); MEAN CORPUSCULAR HEMOGLOBIN 30.9 pg (25-34); RED CELL DISTRIBUTION WIDTH CV 13.3 % (11.5-14.5)
[2017-09-04 05:39] LABS: MEAN PLATELET VOLUME 11.1 fL (7.4-10.4); PLATELET COUNT 98 K/uL (130-400)
[2017-09-04 08:01] VITALS: BP 148/78; PULSE 66; TEMP 36.4; O2SAT 97
[2017-09-04] MEDS: ASPIRIN 81 MG ECTAB PO SCH (09:23)
[2017-09-04] MEDS: METOPROLOL SUCC 50MG EXT REL TAB PO SCH (09:23)
[2017-09-04] MEDS: CEROVITE ADV FORMULA TAB PO SCH (09:23)
[2017-09-04] MEDS: LISINOPRIL 40 MG TAB PO SCH (09:23)
[2017-09-04] MEDS: MAGNESIUM OXIDE 400 MG TAB PO SCH (09:23)
[2017-09-04] MEDS: ROSUVASTATIN CALCIUM 20 MG TAB PO SCH (09:24)
[2017-09-04 13:47] VITALS: BP 148/78; PULSE 66; TEMP 36.4; O2SAT 97
[2017-09-04] MEDS ORDERED: LEVO1TAB34 PO (14:14)
--- NOTE | 2017-09-04 14:20 | Discharge Instructions ---
Discharge Instructions Date of Service Sep 04, 2017. Admission Reason for Admission: UTI Discharge Discharge Diagnosis / Problem: L orchitis, post-operative UTI Discharge Goals Goal(s): Prevent Disease Progression Activity Recommendations Activity Limitations: per Instructions/Follow-up section . Instructions / Follow-Up Instructions / Follow-Up Please take all antibiotic as prescribed and follow-up with your Urologist in [place] within two weeks. It is recommended that you have a hospital follow-up with Dr. Gonzalez after discharge. You are currently scheduled for , 08/31 @ 12:45. It was a pleasure taking care of you! Call if you have any questions or problems. You can [facility] day by calling [phone]. Take care of yourself. Anca White DO [facility] Hospitalist Current Hospital Diet Patient's current hospital diet: AHA Diet (Heart Healthy) Discharge Diet Recommended Diet: AHA Diet (Heart Healthy) Procedures Procedures Performed: None. Pending Studies Studies pending at discharge: yes List of pending studies: Final urine culture pending at discharge Medical Emergencies . Who to Call and When: Medical Emergencies: If at any time you feel your situation is an emergency, please call 911 immediately. . Non-Emergent Contact Non-Emergency issues call your: Primary Care Provider, Urologist . . "Provider Documentation" section prepared by Anca White. . VTE Core Measure Inpt VTE Proph given/why not?: SCD's
--- NOTE | 2017-09-04 14:30 | Discharge Summary ---
Discharge Summary Date of Service Sep 04, 2017. Discharge Summary Admission Date: Sep 02, 2017 at 18:50 Discharge Date: Sep 04, 2017 Discharge Disposition: Home Principal Diagnosis: L orchitis Post-procedural UTI, a complication of cystoscopy performed 08/30 09/13 Enterobacter Aerogenes HTN Chronic thrombocytopenia Procedures: None. Vaccinations: None. Consultations: Urology-Dr. Craig Pending Studies/Follow-Up: see instructions below. Medication Reconciliation New Medications: Levofloxacin (Levaquin) 500 Mg Tab 1 TAB PO DAILY for 14 Days, #14 TAB Continued Medications: Aspirin (Aspirin Ec) 81 Mg Tab 81 MG PO QAM Hydrochlorothiazide (Hydrochlorothiazide) 25 Mg Tab 25 MG PO QAM Lisinopril (Zestril) 40 Mg Tab 40 MG PO QAM, TAB Magnesium Oxide (Mag-Ox) 400 Mg Tab 400 MG PO QAM, TAB Metoprolol Succ (Toprol Xl) (Toprol-Xl) 50 Mg Tabcr 50 MG PO QAM, #30 TAB Ocuvite Preservision (Ocuvite Preservision) 1 Tab Tab 1 TAB PO BID, TAB Rosuvastatin Calcium (Crestor) 40 Mg Tab 40 MG PO QAM, TAB Admission Information HPI (per Admitting provider): 82 year old male who was referred to the ED by his PCP for evaluation of an enlarged testicle and UTI. Patient recently underwent screening cystoscopy on for follow up of bladder cancer. Patient follows with urologist Dr. Quiñonez from [place]. Patient reports her felt well after the procedure however about 48 hours after he reports he developed generalized fatigue and malaise. When he woke up yesterday his left testicle was swollen and painful. He reports chills and diaphoresis however did not take his temperature. He denies any urinary symptoms, no drainage. No abdominal pain, nausea, vomiting, or diarrhea. He denies chest pain and shortness of breath. No lightheadedness, dizziness, or syncopal events. He was seen at his PCPs office today who obtained labs and a testicular US. US showed a fluid collection near the left testicle. He was referred to the ED for further evaluation. In the ED, patient's WBC is 18K and U /A suggests UTI. He is hemodynamically stable. He was given IVF and IV Levaquin. Physical Exam (per Admitting): General Appearance: WD/WN, no apparent distress Head: normocephalic, atraumatic Eyes: normal inspection, EOMI, sclerae normal ENT: hearing grossly normal, + pertinent finding (mucous membranes moist) Neck: supple, no JVD, trachea midline Respiratory/Chest: lungs clear, normal breath sounds, no respiratory distress Cardiovascular: regular rate, rhythm, no edema, normal peripheral pulses Abdomen/GI: normal bowel sounds, non tender, soft, no organomegaly Genitourinary - Male: + testicular tenderness (left, with edema ) Extremities/Musculoskelatal: normal inspection, no calf tenderness, normal capillary refill Neurologic/Psych: no motor/sensory deficits, alert, normal mood/affect, oriented x 3 Skin: normal color, warm/dry Hospital Course The patient presented to the ER with L testicular swelling after a cystoscopy on 08/30. He was non-toxic appearing but did have a WBC count of 18K and a creat 1.25. He was started on Levaquin IV and IVF and placed on the Medicine floor. He had previously had a testicular ultrasound performed at his PCP office earlier that day that revealed no evidence of intratesticular mass or torsion. He was febrile overnight which resolved within 24 hours. Pain was managed with Tylenol. He was greatly improved on HD 3 and was transitioned to PO Levaquin for two weeks per Dr. Craig in Urology who saw him. He sees a Urologist in [place] and was advised to follow-up there in two weeks. On day of discharge he was hemodynamically stable and afebrile and was mentating and oxygenating and ambulating at baseline. Testicular swelling was still present but resolving, no inguinal LAD was present, and he reported little to no pain which was a great improvement from admission two days earlier. He was discharged in stable condition. Total time spent on discharge = 60 minutes This includes examination of the patient, discharge planning, medication reconciliation, and communication with other providers. Discharge Instructions [address] [address] Discharge Medical Patient Name: Akin Jimenez Unit Number: [id number] Date of : 1935 Patient Status: Admitted Inpatient Attending Doctor: Anca White DO DI: Medical v4 Discharge Instructions Date of Service Sep 04, 2017. Admission Reason for Admission: UTI Discharge Discharge Diagnosis / Problem: L orchitis, post-operative UTI Discharge Goals Goal(s): Prevent Disease Progression Activity Recommendations Activity Limitations: per Instructions/Follow-up section . Instructions / Follow-Up Instructions / Follow-Up Please take all antibiotic as prescribed and follow-up with your Urologist in [place] within two weeks. It is recommended that you have a hospital follow-up with Dr. Gonzalez after discharge. You are currently scheduled for , 08/31 @ 12:45. It was a pleasure taking care of you! Call if you have any questions or problems. You can [facility] 24 hours a day by calling [phone]. Take care of yourself. Anca White DO [facility] Diet Patient's current hospital diet: AHA Diet (Heart Healthy) Discharge Diet Recommended Diet: AHA Diet (Heart Healthy) Procedures Procedures Performed: None. Pending Studies Studies pending at discharge: yes List of pending studies: Final urine culture pending at discharge Medical Emergencies . Who to Call and When: Medical Emergencies: If at any time you feel your situation is an emergency, please call 911 immediately. . Non-Emergent Contact Non-Emergency issues call your: Primary Care Provider, Urologist . . "Provider Documentation" section prepared by Anca White. . VTE Core Measure Inpt VTE Proph given/why not?: SCD's Additional Copies To Brendon Gonzalez D.O.
== END 2017-09-04 15:34 | disposition home or self-care (01) | DRG 699 ==
LOC: C.EDB 15:07 → C.MSN 18:50 → ENRESERV 19:19 → C.MSN 20:19
PROVIDERS: ADMIT Internal Medicine; ATTEND Hospitalist
DX: N99.89 Other postprocedural complications and disorders of genitourinary system (principal); N39.0 Urinary tract infection, site not specified; N45.2 Orchitis; N40.0 Benign prostatic hyperplasia without lower urinary tract symptoms; E78.5 Hyperlipidemia, unspecified; I10 Essential (primary) hypertension; G47.33 Obstructive sleep apnea (adult) (pediatric); D69.6 Thrombocytopenia, unspecified; Z85.51 Personal history of malignant neoplasm of bladder; Z79.82 Long term (current) use of aspirin